=== PATIENT | female | born 1985 | race Hispanic/Latino ===

== ENCOUNTER 2023-02-15 13:09 | Emergency (ER) | payer SELFPAY ==
[2023-02-15] MEDS ORDERED: Acetaminophen 325 MG TAB ONE (13:31)
[2023-02-15] MEDS ORDERED: Ketorolac Tromethamine 30 MG/ML VIAL ONE (13:31)
== END 2023-02-15 15:07 | disposition home or self-care (01) ==
LOC: ERS 13:09
DX: M77.9 Enthesopathy, unspecified (principal)
CPT/HCPCS: 96372; J1885